=== PATIENT | female | born 1995 | race Caucasian/White ===

== ENCOUNTER 2019-06-11 06:05 | Emergency (ER) | payer BC ==
[2019-06-11 06:13] VITALS: BMI 24.0
[2019-06-11] MEDS ORDERED: METOCLOPRAMIDE HCL INJECTION 10 MG/2 ML VIAL IVPUSH ONE (06:15)
[2019-06-11] MEDS ORDERED: SODIUM CHLORIDE 0.9% 500 ML INFUS.BAG IV ONE (06:15)
[2019-06-11] MEDS ORDERED: KETOROLAC TROMETHAMINE 15 MG/ML VIAL IVPUSH ONE (06:15)
[2019-06-11] MEDS ORDERED: METOCLOPRAMIDE HCL INJECTION 10 MG/2 ML VIAL ONE (06:18)
[2019-06-11] MEDS ORDERED: KETOROLAC TROMETHAMINE 15 MG/ML VIAL ONE (06:18)
--- NOTE | 2019-06-11 06:18 | PDOC ---
History of Present Illness - General Chief Complaint: Cold Symptoms Stated Complaint: FEVER Time Seen by Provider: 06/11/19 06:14 History Source: Patient Exam Limitations: No Limitations - History of Present Illness Is this a multiple visit Asthma Patient?: No Timing/Duration: 1 week Severity: moderate Modifying Factors: worse with: cold therapy, eating, medication Associated Symptoms: reports: fever/chills, headaches, loss of appetite, nausea/ vomiting Past History - Past Medical History Allergies/Adverse Reactions: Allergies Allergy/AdvReac Type Severity Reaction Status Date / Time No Known Allergies Allergy Unverified 06/11/19 06:08 Home Medications: Ambulatory Orders Eltrombopag Olamine [Promacta] 50 mg PO DAILY 06/11/19 COPD: No Other medical history: ITP Comment:: 06/11/19 06:16 itp - Psycho Social/Smoking Cessation Hx Smoking History: Unknown if ever smoked Have you smoked in the past 12 months: No Number of Cigarettes Smoked Daily: 0 Information on smoking cessation initiated: No Hx Alcohol Use: No Drug/Substance Use Hx: No Review of Systems - Review of Systems All Other Systems: Reviewed and Negative *Physical Exam - Vital Signs Last Vital Signs Temp Pulse Resp BP Pulse Ox 103.0 F H 117 H 14 112/74 97 06/11/19 06:09 06/11/19 06:09 06/11/19 06:09 06/11/19 06:09 06/11/19 06:09 - Physical Exam General Appearance: Yes: Nourished, Appropriately Dressed. No: Apparent Distress HEENT: negative: Muffled/Hoarse voice, Pharyngeal Erythema, Tonsillar Exudate, Sinus Tenderness Neck: positive: Supple. negative: Lymphadenopathy (R), Lymphadenopathy (L) Respiratory/Chest: positive: Lungs Clear Cardiovascular: positive: Regular Rhythm. negative: Murmur Gastrointestinal/Abdominal: negative: Tender, Distended, Guarding Lymphatic: negative: Adenopathy Musculoskeletal: positive: Normal Inspection Extremity: positive: Normal Capillary Refill Integumentary: positive: Normal Color. negative: Petechiae, Bruising Neurologic: positive: Fully Oriented Medical Decision Making - Medical Decision Making 06/11/19 06:17 febrile illness without evidence of hx or pe of sbi symptomatic mgmt Discharge - Discharge Information Problems reviewed: Yes Clinical Impression/Diagnosis: Febrile illness Condition: Good - Follow up/Referral Referrals: Alison Tim MD [Primary Care Provider] - - Patient Discharge Instructions - Post Discharge Activity
[2019-06-11] MEDS ORDERED: ACETAMINOPHEN 325 MG TABLET (FP) PO ONE (07:21)
--- NOTE | 2019-06-11 07:23 | PDOC ---
*Physical Exam - Vital Signs Last Vital Signs Temp Pulse Resp BP Pulse Ox 99.8 F H 117 H 14 112/74 97 06/11/19 07:10 06/11/19 06:09 06/11/19 06:09 06/11/19 06:09 06/11/19 06:09 ED Treatment Course - Medications Given in the ED: ED Medications Discontinued Medications Generic Name Dose Route Start Last Admin Trade Name Emilie PRN Reason Stop Dose Admin Ketorolac Tromethamine 15 mg 06/11/19 06:15 06/11/19 06:33 Toradol Injection - IVPUSH 06/11/19 06:16 15 mg ONCE ONE Administration Metoclopramide HCl 10 mg 06/11/19 06:15 06/11/19 06:33 Reglan Injection - IVPUSH 06/11/19 06:16 10 mg ONCE ONE Administration Sodium Chloride 2,000 ml 06/11/19 06:15 06/11/19 06:33 Normal Saline - IV 06/11/19 06:16 2,000 ml ONCE ONE Administration Medical Decision Making - Medical Decision Making 06/11/19 07:22 s/o from overnight attg pending reeval in summary, 24 y/o female with no sig medical history presenting with fever x 5 days, most likely viral syndrome Vital Signs Temp Pulse Resp BP Pulse Ox 99.8 F H 117 H 14 112/74 97 06/11/19 07:10 06/11/19 06:09 06/11/19 06:09 06/11/19 06:09 06/11/19 06:09 vitals with fever and tachycardia being treated with migraine cocktail given headache coming from fever s/p IVF, analgesia, reglan, reassessing repeat VS improving, defervescing. no longer tachy, well appearing otherwise and slept comfortably additional tylenol Pt to be discharged in stable condition. Patient made aware of clinical impression, treatment recommendations and disposition plan, return precautions discussed (including but not limited to new or persistent/worsening symptoms, pain, fevers, or signs of infection, chest pain, respiratory distress, inability to tolerate oral intake, dehydration, syncope, or neurologic changes) . Follow up with PMD as recommended, follow up information provided, take medications as instructed for duration of time. continue with supportive care, avoid triggers and precipitants. All questions answered to patient's satisfaction and expressed understanding and comfort with this. At the time of discharge, the patient is alert, clinically improved, tolerating po and verbalizes understanding of instructions, satisfied with the care received and felt comfortable with the plan. Patient does not suffer from an acute life- threatening medical condition at this time and is safe for outpatient follow- up. 06/11/19 07:50 06/11/19 07:51 Discharge - Discharge Information Problems reviewed: Yes Clinical Impression/Diagnosis: Febrile illness Condition: Good Disposition: HOME - Admission No - Follow up/Referral Referrals: Alison Tim MD [Primary Care Provider] - - Patient Discharge Instructions Patient Printed Discharge Instructions: DI for Viral Syndrome, DI for Fever ( Symptom) -- Adult - Post Discharge Activity Work/Back to School Note: Back to Work
[2019-06-11] MEDS ORDERED: ACETAMINOPHEN 325 MG TABLET (FP) ONE (07:29)
[2019-06-11 07:49] VITALS: BP 122/59; PULSE 85; TEMP 98.5
== END 2019-06-11 07:56 | disposition home or self-care (01) ==
LOC: FER 06:05
PROC: 3E0333Z Introduction of Anti-inflammatory into Peripheral Vein, Percutaneous Approach (ICD-10-PCS; principal; 2019-06-11)
PROC: 3E033GC Introduction of Other Therapeutic Substance into Peripheral Vein, Percutaneous Approach (ICD-10-PCS; 2019-06-11)
PROC: 3E0337Z Introduction of Electrolytic and Water Balance Substance into Peripheral Vein, Percutaneous Approach (ICD-10-PCS; 2019-06-11)
DX: R50.9 Fever, unspecified (principal); D69.3 Immune thrombocytopenic purpura
CPT/HCPCS: 99283-25

== ENCOUNTER 2021-12-29 07:55 | Emergency (ER) | payer BC ==
[2021-12-29 08:06] VITALS: BP 111/68; PULSE 103; TEMP 98.9; BMI 28.3
== END 2021-12-29 10:05 | disposition home or self-care (01) ==
LOC: JER 07:55
DX: J02.9 Acute pharyngitis, unspecified (principal); R21 Rash and other nonspecific skin eruption
CPT/HCPCS: 87651; 87804; 99283-25; C9803-CS; U0003; U0005

== ENCOUNTER 2025-02-09 16:10 | Emergency (ER) | payer OTHER ==
[2025-02-09 16:46] VITALS: BP 112/71; PULSE 71; RESP 20; TEMP 98.1; BMI 30.1
[2025-02-09 18:27] LABS: ABSOLUTE IMMATURE GRANULOCYTES 0.01 x10^3/uL (0.0-0.031); HEMATOCRIT 38.4 % (34.1-44.9); MCHC 33.9 g/dl (32.2-35.5); MONOCYTE # 0.48 x10^3/uL (0.24-0.86); RDW 12.4 % (12.1-16.5)
[2025-02-09 18:30] LABS: INR 1.16 (0.83-1.09); PROTHROMBIN TIME (PATIENT) 12.9 SEC (9.7-13.0)
[2025-02-09 18:32] LABS: BASOPHILS # 0.03 x10^3/uL (0.01-0.08); EOSINOPHIL % 1.2 % (0.7-5.8); EOSINOPHILS # 0.07 x10^3/uL (0.04-0.36); MEAN CELL VOLUME 80.5 fl (79.4-94.8); MEAN PLT VOLUME 11.2 fl (9.4-12.3); MONOCYTE % 8.3 % (4.7-12.5)
[2025-02-09 18:32] LABS: ACTIVATED PTT 35.8 SECONDS (25.2-36.5)
[2025-02-09 18:44] LABS: PLATELET COUNT 28 x10^3/uL (182-369)
[2025-02-09 18:46] LABS: ALBUMIN 4.8 g/dl (3.4-5.0); BILIRUBIN,TOTAL 0.4 mg/dl (0.2-1); CALCIUM 9.4 mg/dl (8.5-10.1); CREATININE 0.6 mg/dl (0.6-1.3); POTASSIUM 3.7 mmol/L (3.5-5.1); TOT PROT 7.1 g/dl (6.4-8.2)
[2025-02-10 00:40] LABS: HCV DIAGNOSTIC IN-HOUSE W/RFLX NON-REACTIVE (NONREACTIVE)
[2025-02-10 00:41] LABS: HIV INTERPRETATION NEGATIVE (NEGATIVE)
== END 2025-02-09 19:04 | disposition home or self-care (01) ==
LOC: FER 16:10
DX: D69.6 Thrombocytopenia, unspecified (principal); D69.3 Immune thrombocytopenic purpura
CPT/HCPCS: 36415; 80053; 85025; 85610; 85730; 86803; 86850; 86900; 86901; 87389; 99283-25

== ENCOUNTER 2025-06-16 17:46 | Emergency (ER) | payer OTHER ==
[2025-06-16 18:10] VITALS: BP 103/70; PULSE 88; RESP 14; TEMP 98.8; BMI 30.9
[2025-06-16 18:39] LABS: HCG,QUALITATIVE URINE Negative
[2025-06-16 18:45] LABS: ABSOLUTE IMMATURE GRANULOCYTES 0.01 x10^3/uL (0.0-0.031); BASOPHILS # 0.02 x10^3/uL (0.01-0.08); EOSINOPHIL % 1.5 % (0.7-5.8); EOSINOPHILS # 0.10 x10^3/uL (0.04-0.36); MCHC 34.5 g/dl (32.2-35.5); MEAN CELL VOLUME 79.4 fl (79.4-94.8); MEAN PLT VOLUME 11.7 fl (9.4-12.3); MONOCYTE # 0.59 x10^3/uL (0.24-0.86); MONOCYTE % 8.9 % (4.7-12.5); RDW 12.1 % (12.1-16.5)
[2025-06-16 18:49] LABS: EPITHELIAL CELLS FEW /hpf
[2025-06-16 19:08] LABS: CO2 27.0 mmol/L (21-32); CREATININE 0.7 mg/dl (0.6-1.3); GLUCOSE,RANDOM 74.0 mg/dl (74-106)
[2025-06-16] MEDS ORDERED: CEPHALEXIN MONOHYDRATE 500 MG CAPSULE (UD) ONE (19:17)
[2025-06-16] MEDS: CEPHALEXIN MONOHYDRATE 500 MG CAPSULE (UD) PO ONE (19:18)
== END 2025-06-16 19:47 | disposition home or self-care (01) ==
LOC: FER 17:46 → SUPCPDRO 17:46 → FER 19:47
DX: N39.0 Urinary tract infection, site not specified (principal); D69.6 Thrombocytopenia, unspecified; M54.50 Low back pain, unspecified
CPT/HCPCS: 36415; 76775-TC; 80048; 81003; 81015; 84703; 85025; 87086; 99283-25